=== PATIENT | female | born 1980 | race Caucasian/White ===

== ENCOUNTER → 2021-05-11 | Outpatient (CLI) | payer OTHER ==
[~2021-05-11] MED LIST: FLEXERIL 10 MG10 MG PO; OMEPRAZOLE20 M1 PO
== END ==
LOC: KOH-I 15:08
DX: R42 Dizziness and giddiness (principal)
CPT/HCPCS: 93880

== ENCOUNTER 2021-08-13 12:10 | Emergency (ER) | payer OTHER ==
[2021-08-13 13:16] LABS: HEMOGLOBIN 14.5 gm/dl (12.3-15.3); RED BLOOD COUNT 5.03 M/UL (4.00-5.10); WHITE BLOOD COUNT 2.6 K/UL (4.5-11.0)
[2021-08-13 13:32] LABS: BUN/CREATININE RATIO 14 (0-10)
== END 2021-08-13 15:58 | disposition home or self-care (01) ==
LOC: ER1 12:10
DX: U07.1 COVID-19 (principal); R10.812 Left upper quadrant abdominal tenderness; R10.9 Unspecified abdominal pain; E03.9 Hypothyroidism, unspecified; I10 Essential (primary) hypertension; Z90.89 Acquired absence of other organs; Z90.49 Acquired absence of other specified parts of digestive tract; Z88.5 Allergy status to narcotic agent; Z88.8 Allergy status to other drugs, medicaments and biological substances
CPT/HCPCS: 71045; 80053; 81001; 83690; 85025; 99284

== ENCOUNTER 2021-12-02 09:27 | Emergency (ER) | payer OTHER ==
[2021-12-02 10:32] LABS: HEMOGLOBIN 14.3 gm/dl (12.3-15.3); RED BLOOD COUNT 4.8 M/UL (4.00-5.10)
[2021-12-02 11:03] LABS: BUN/CREATININE RATIO 18 (0-10)
[2021-12-02] MEDS ORDERED: PRILOSEC OTC20 MG PO (17:13)
== END 2021-12-02 17:30 | disposition home or self-care (01) ==
LOC: ER1 09:27
PROVIDERS: Nurse Practitioner
DX: R10.9 Unspecified abdominal pain (principal); R14.2 Eructation; R10.817 Generalized abdominal tenderness; E66.9 Obesity, unspecified; I10 Essential (primary) hypertension; Z88.2 Allergy status to sulfonamides; Z88.5 Allergy status to narcotic agent; Z88.8 Allergy status to other drugs, medicaments and biological substances; Z79.899 Other long term (current) drug therapy
CPT/HCPCS: 71045; 73060; 80053; 81001; 82550; 82553; 83605; 83690; 84484; 85025; 93005; 96374; 96375; 99284; J1170; J1885; J2405; Q9967